=== PATIENT | male | born 1980 | race Caucasian/White ===

== ENCOUNTER 2019-08-31 00:12 | Emergency (ER) | payer SELFPAY ==
[2019-08-31 00:35] VITALS: BP 152/118; PULSE 120; TEMP 99; BMI 26.6
--- NOTE | 2019-08-31 00:46 | PDOC ---
History of Present Illness - General Chief Complaint: Alcohol intoxication Stated Complaint: BROUGHT BY POLICE FOR INTOX Time Seen by Provider: 08/31/19 00:38 - History of Present Illness Initial Comments: This 39-year-old man with a history of HTN (not currently being treated) and anxiety, visiting the area for training program at [employer] was brought into the ER by [place] [employer]. They had been called to the lobby of the hotel that the patient was staying in with report that the patient was intoxicated and disruptive. According to police, patient was alert, intoxicated and argumentative at the scene . It was determined that he needed to be brought to the ER for evaluation. He was not put under arrest. Patient admits to drinking an unspecified amount of alcohol at bar near the hotel. He states that he was not involved in any physical altercation and has no injury or other complaints. Patient admits to smoking 2 packs of cigarettes/day and drinks alcohol daily Past History - Past Medical History Allergies/Adverse Reactions: Allergies Allergy/AdvReac Type Severity Reaction Status Date / Time No Known Allergies Allergy Verified 08/31/19 00:14 Home Medications: Ambulatory Orders Escitalopram Oxalate [Lexapro -] 5 mg PO DAILY 08/31/19 COPD: No Other medical history: ANXIETY - Psycho Social/Smoking Cessation Hx Smoking History: Current every day smoker Have you smoked in the past 12 months: Yes Number of Cigarettes Smoked Daily: 40 Information on smoking cessation initiated: Yes Hx Alcohol Use: Yes (DAILY) Drug/Substance Use Hx: No Review of Systems - Review of Systems Able to Perform ROS?: Yes Comments:: 12 point review of systems is negative except for what is noted in the history of present illness *Physical Exam - Vital Signs Last Vital Signs Temp Pulse Resp BP Pulse Ox 99 F 120 H 20 152/118 H 96 08/31/19 00:16 08/31/19 00:16 08/31/19 00:16 08/31/19 00:16 08/31/19 00:16 - Physical Exam GENERAL: Adult male, alert ,slight slurring of speech but fully oriented HEAD: Normal with no signs of trauma. EYES: PERRLA, EOMI, sclera anicteric, conjunctiva moderately injected bilaterally. ENT: Dry mucous membranes. EXTREMITIES: Normal range of motion, no edema. No clubbing or cyanosis. No erythema, or tenderness. No abrasions or lacerations NEUROLOGICAL: Cranial nerves II through XII grossly intact. . No focal neurological deficits. Gait normal without ataxia SKIN: Warm, Dry, normal turgor, no rashes or lesions noted. Medical Decision Making - Medical Decision Making This 39-year-old man with a history of hypertension and anxiety visiting from [place] for local training program, staying in the local hotel brought to the ER by local police department after he was disruptive in the hotel. Patient had been drinking, was barred from staying in the hotel and Police Department determined that he needed to be evaluated for alcohol intoxication. On presentation, the patient is alert and oriented and fully communicative. He states that he did drink at a bar close to the hotel but walked to the hotel. It appears that he had an argument with the hotel staff in the lobby when he returned to the hotel but there was no indication that there was any physical altercation. He denies pain or other acute complaint except being aggravated by current situation. He is cooperative without suicidal or homicidal ideation. Exam is unremarkable; his blood pressure is elevated but consistent with the patient's current emotional stress. Otherwise, exam is generally without specific abnormality. Since patient is alert and oriented, ambulating without significant ataxia and appears to not be a danger to himself or to other people,it is determined that the patient's level of intoxication does not require further treatment or observation. The patient's plan for the remainder of the night (since patient cannot apparently now stay in the hotel where he has reservation) is to get to his truck, parked in the garage of the hotel where he will sleep for the remainder of the night. Since he traveled here alone and no taxi service is available at this time, hired car (uber) was called for the patient. Patient was firmly instructed not to drive until he was sober. The patient understood this and agreed to that plan. He will follow-up with his doctor when he returns to [place] and return here to the ER as needed Discharge - Discharge Information Problems reviewed: Yes Clinical Impression/Diagnosis: Alcohol use Condition: Stable Disposition: HOME - Follow up/Referral - Patient Discharge Instructions Patient Printed Discharge Instructions: DI for Alcohol Abuse Additional Instructions: rest and don't drive until you are sober decrease smoking followup with your doctor when you return home - Post Discharge Activity
== END 2019-08-31 01:10 | disposition home or self-care (01) ==
LOC: FER 00:12
DX: F10.99 Alcohol use, unspecified with unspecified alcohol-induced disorder (principal); I10 Essential (primary) hypertension; F41.9 Anxiety disorder, unspecified; F17.210 Nicotine dependence, cigarettes, uncomplicated
CPT/HCPCS: 99281-25